=== PATIENT | female | born 1995 | race Caucasian/White ===

== ENCOUNTER → 2017-07-30 09:16 | Outpatient (CLI) | payer MEDICAID, SELFPAY ==
--- NOTE | 2017-07-30 09:23 | US_ITS ---
US abdomen complete HISTORY: Epigastric and right upper quadrant pain with nausea ITS.REASON: RT SIDED ABDOMINAL PAIN,NAUSEA,PAIN CENTER OF ABD ORDERING PHYSICIAN: Angelita Jensen PATIENT AGE: 21 years COMPARISON: None FINDINGS: PANCREAS:Unremarkable. No obvious mass or abnormal fluid collection. No ductal dilatation LIVER:No focal liver lesions demonstrated. Homogeneous echogenicity. No intrahepatic biliary ductal dilatation evident RIGHT KIDNEY:Unremarkable. Normal size and echogenicity. No hydronephrosis LEFT KIDNEY:Unremarkable. No hydronephrosis. Normal size and echogenicity. GALLBLADDER:No gallstones, gallbladder wall thickening, pericholecystic fluid, or biliary dilatation. AORTA:No evidence of aneurysmal dilatation. SPLEEN:Unremarkable. Normal size and echogenicity ASCITES:None demonstrated. IMPRESSION: Unremarkable abdominal ultrasound
== END ==
PROVIDERS: Family Provider Family Medicine; PCP Nurse Practitioner Family; Visit Provider Nurse Practitioner
DX: R10.9 Unspecified abdominal pain (principal); R10.13 Epigastric pain
CPT/HCPCS: 76700

== ENCOUNTER → 2018-03-24 10:15 | Outpatient (CLI) | payer MEDICAID, SELFPAY ==
--- NOTE | 2018-03-24 10:23 | XR_ITS ---
EXAM: XR lumbar spine min 4V HISTORY: ITS.REASON: LUMBAGO ORDERING PHYSICIAN: Sobia Garcia PATIENT AGE: 22 years COMPARISON: None FINDINGS: There is minimal lumbar curvature convex left which could be due to patient positioning or mild scoliosis. No fracture or dislocation. No lytic or blastic change. IMPRESSION: Minimal lumbar curvature versus mild scoliosis otherwise negative
== END ==
PROVIDERS: PCP Nurse Practitioner Family; Visit Provider Nurse Practitioner Family
DX: M54.41 Lumbago with sciatica, right side (principal); M54.42 Lumbago with sciatica, left side
CPT/HCPCS: 72110

== ENCOUNTER → 2018-04-07 14:47 | Outpatient (CLI) | payer MEDICAID, SELFPAY ==
--- NOTE | 2018-04-07 14:50 | MR_ITS ---
MR lumbar spine wo con, MR 3-d myelogram/MRCP HISTORY: Severe low back pain, lumbar curvature ITS.REASON: CURVATURE OF SPINE ORDERING PHYSICIAN: Sobia Garcia PATIENT AGE: 22 years Comparison: X-RAY 03/24/18 TECHNIQUE: Standard multiplanar multiecho sequences are performed without contrast. 3-D MIP and myelographic images are also rendered and reviewed FINDINGS: The spinal cord ends at the L1 level. There is straightening of the lumbar lordosis which could be due to patient positioning or muscle spasm. T11-T12, T12-L1, L1-L2, , L2-L3, and L3-L4 have an unremarkable appearance. L4-5: There is mild facet hypertrophic change. L5-S1: Slight decrease in the disc space with mild disc desiccation and mild bulging disc with minimal broad-based central disc protrusion without neural impingement. No canal stenosis or extruded herniated disc evident. IMPRESSION: Mild degenerative disc disease at L5-S1 with bulging disc and small broad-based central disc protrusion without neural impingement No extruded herniated disc or canal stenosis
== END ==
PROVIDERS: PCP Nurse Practitioner Family; Visit Provider Nurse Practitioner Family
DX: M43.9 Deforming dorsopathy, unspecified (principal)
CPT/HCPCS: 72148; 76376